=== PATIENT | female | born 1965 | race Caucasian/White ===

== ENCOUNTER 2016-09-16 16:35 | Emergency (ER) | payer OTHER ==
[~2016-09-16 16:35] MED LIST: ALPR2TAB5 PO; BUPR100T8 PO; CODE5LIQ PO; CYCL-331 PO; LAMO200T3 PO; OXYC10TA PO; OXYC60TA7 PO; PHEN37.53 PO; SPIR100T2 PO; SULF1TAB24 PO; SUMA100T4 PO
[2016-09-16] MEDS ORDERED: HYDROcodone/APAP 5/325MG 1 TAB TABLET PO ONE (17:15)
--- NOTE | 2016-09-16 17:30 | RAD ---
Right knee radiographs History: Fall, pain. Comparison: 11/12/2015. Findings: AP, lateral, and oblique views of the right knee. No acute fracture or dislocation is identified. No joint effusion is seen. Moderate medial compartment degeneration is present. Mild lateral compartment degeneration is seen. Mild-moderate patellofemoral compartment degeneration is noted. Postsurgical changes of ACL repair can be seen. Impression: No acute osseous traumatic injury identified.
--- NOTE | 2016-09-16 17:31 | RAD ---
Right wrist radiographs History: Pain, fall. Comparison: None. Findings: PA, lateral, and oblique views of the right wrist. Old posttraumatic and postsurgical changes are again seen involving the right wrist. As before, scaphoid, lunate, and triquetrum are absent. No acute osseous abnormality is identified. Impression: Chronic changes. No acute osseous traumatic injury seen.
[2016-09-16] MEDS ORDERED: MORP15TA PO (17:38)
--- NOTE | 2016-09-16 17:38 | PHYS DOC ---
Past History Past Medical History: Other Past Surgical History: Appendectomy, Cholecystectomy, Hysterectomy Smoking: Cigarettes Alcohol Use: Occasionally Drug Use: None Adult General Chief Complaint Chief Complaint: LOWER EXT PAIN HPI HPI 50-year-old female presenting to the emergency department today with right wrist and right knee pain. She had a fall 4 days ago. Her pain is mild intermittent worse with movement of the extremities. It is nonradiating and is acute on chronic. She takes oxycodone for her pain which improves her pain. She denies any other injuries from her fall. Review of systems is negative for chest pain shortness of breath abdominal pain head trauma neck pain. All other review of systems is negative unless otherwise noted in history of present illness. Pertinent physical exam findings showed a stable knee joint that was with a mild effusion. Normal skin overlying the knee. Neurovascularly intact with 2 second cap refill distally. The right wrist has mild swelling there is neurovascularly intact. Normal skin overlying. Normal motor and vascular function of the hand. ED course: Patient was given oral and intramuscular pain medications for pain control. X-rays obtained which were unremarkable. The patient was then discharged home in stable condition to follow up with their primary care physician over the next 2-3 days. They were to return if their symptoms worsened or if they were concerned for any reason. [id number] discharge instructions and return precautions were given. Patient's questions were answered to their satisfaction. Patient is comfortable plan. Review of Systems Review of Systems SEE ABOVE. Current Medications Current Medications Current Medications Medications (Trade) Dose Ordered Sig/Meena Start Time Stop Time Status Last Admin Dose Admin Acetaminophen/ Hydrocodone Bitart (Lortab 5/325) 2 tab 1X ONCE 09/16/16 17:15 09/16/16 17:16 DC 09/16/16 17:10 2 TAB Allergies Allergies Allergies Coded Allergies Type Severity Reaction Last Updated Verified Penicillins Allergy Intermediate 08/23/15 Yes aspirin Allergy Intermediate 08/23/15 Yes codeine Allergy Intermediate 08/23/15 Yes Interferons Allergy Unknown 11/01/15 Yes Physical Exam Physical Exam Constitutional: Well developed, well nourished, no acute distress, non-toxic appearance. HENT: Normocephalic, atraumatic, bilateral external ears normal, oropharynx moist, no oral exudates, nose normal. [] Eyes: PERRLA, EOMI, conjunctiva normal, no discharge. [] Neck: Normal range of motion, no tenderness, supple, no stridor. [] Cardiovascular:Heart rate regular rhythm, no murmur Lungs & Thorax: Bilateral breath sounds clear to auscultation [] Abdomen: Bowel sounds normal, soft, no tenderness, no masses, no pulsatile masses. [] Skin: Warm, dry, no erythema, no rash. Back: No tenderness, no CVA tenderness. [] Extremities: see above Neurologic: Alert and oriented X 3, normal motor function, normal sensory function, no focal deficits noted. Psychologic: Affect normal, judgement normal, mood normal. [] Current Patient Data Vital Signs Vital Signs Date Time Temp Pulse Resp B/P (MAP) Pulse Ox O2 Delivery O2 Flow Rate FiO2 09/16/16 17:10 18 Room Air 09/16/16 16:50 98.1 101 94 EKG EKG [] Radiology/Procedures Radiology/Procedures [] Course & Med Decision Making Course & Med Decision Making Pertinent Labs and Imaging studies reviewed. (See chart for details) [] Dragon Disclaimer Dragon Disclaimer This chart was dictated in whole or in part using Voice Recognition software in a busy, high-work load, and often noisy Emergency Department environment. It may contain unintended and wholly unrecognized errors or omissions. Departure Departure: Impression: Primary Impression: Wrist pain, right Additional Impression: Right knee pain Disposition: 01 HOME, SELF-CARE Condition: STABLE Referrals: GARRISON MORA MD (PCP) Patient Instructions: Knee Pain, [id number], Wrist Pain, [id number] Additional Instructions: Thank you for allowing us to participate in your care today. Followup with your primary care physician in 3 days if your symptoms do not improve. If you do not have a primary care provider you can ask for a list of our primary care providers. Return to the emergency department you have any new or concerning findings. This should be evaluated by the primary care physician and any necessary consulting services for continued management within a few days after discharge. Return to emergency room if you have any new or concerning symptoms including but not limited to fever, chills, nausea, vomiting, intractable pain, any new rashes, chest pain, shortness of air, uncontrolled bleeding, difficulty breathing, and/or vision loss. You may have been prescribed medication that can change in your level of thinking and ability to operate machinery. These medications include hydrocodone and Ativan. Also, Benadryl has been known to do this as well. Be sure to check with your pharmacist and ask if the medications you've prescribed can affect your level of consciousness. I recommend not operating heavy machinery or driving while on medication such as these. Scripts Morphine Sulfate (MORPHINE SULFATE) 15 Mg Tablet 1 TAB PO PRN Q8HRS Y for SEVERE PAIN, #8 TAB Be careful as this medication may make you sleepy or drowsy. Do not drive or operate heavy machinery on this medication. Be sure to ask the pharmacist about other side effects that can exist such as constipation. Prov: ROSIO TAYLOR MD 09/16/16 Problem Qualifiers ROSIO TAYLOR MD September 16, 2016 17:38
[2016-09-16] MEDS ORDERED: HYDROmorphone PF 1 MG/ML DISP.SYRIN IM ONE (18:15)
[2016-09-16 18:21] VITALS: BP 102/68
== END 2016-09-16 18:22 | disposition home or self-care (01) ==
LOC: ER 16:35
DX: M25.561 Pain in right knee (principal); M25.531 Pain in right wrist; F17.210 Nicotine dependence, cigarettes, uncomplicated; Z88.0 Allergy status to penicillin; Z88.6 Allergy status to analgesic agent; Z88.8 Allergy status to other drugs, medicaments and biological substances; W19.XXXA Unspecified fall, initial encounter; Y93.89 Activity, other specified; Y99.8 Other external cause status; Y92.89 Other specified places as the place of occurrence of the external cause
CPT/HCPCS: 73110; 73562; 96372; 99284; J1170

== ENCOUNTER 2017-02-04 13:53 | Emergency (ER) | payer OTHER ==
[~2017-02-04] VITALS: Ht 154.9 cm; Wt 93.9 kg
[~2017-02-04 13:53] MED LIST changes: +MORP15TA PO
--- NOTE | 2017-02-04 14:00 | PHYS DOC ---
Past History Past Medical History: Other Past Surgical History: Appendectomy, Cholecystectomy, Hysterectomy Smoking: Cigarettes Alcohol Use: Occasionally Drug Use: None Adult General Chief Complaint Chief Complaint: LACERATION/AVULSION HPI HPI Patient is a 51 year old F who presents with a laceration to her scalp. Lisa fell just prior to arrival. She does describe mild headache, mild dizziness and mild nausea. She denies loss of consciousness. She denies changes in vision. She denies any other associated symptoms. She has no exacerbating or alleviating factors. Review of Systems Review of Systems Constitutional: Denies fever or chills [] Eyes: Denies change in visual acuity, redness, or eye pain [] HENT: Denies nasal congestion or sore throat [] Respiratory: Denies cough or shortness of breath [] Cardiovascular: No additional information not addressed in HPI [] GI: Denies abdominal pain, nausea, vomiting, bloody stools or diarrhea [] : Denies dysuria or hematuria [] Musculoskeletal: Denies back pain or joint pain [] Integument: Denies rash Neurologic: Denies headache, focal weakness or sensory changes [] Endocrine: Denies polyuria or polydipsia [] Family History Family History Noncontributory Current Medications Current Medications Medications reviewed Allergies Allergies Allergies Coded Allergies Type Severity Reaction Last Updated Verified Penicillins Allergy Intermediate 08/23/15 Yes aspirin Allergy Intermediate 08/23/15 Yes codeine Allergy Intermediate 08/23/15 Yes Interferons Allergy Unknown 11/01/15 Yes Physical Exam Physical Exam Constitutional: Well developed, well nourished, no acute distress, non-toxic appearance. [] HENT: Normocephalic, 1 cm scalp laceration, clean and hemostatic with mild surrounding edema. Tenderness to palpation Eyes: PERRLA, EOMI, conjunctiva normal, no discharge. [] Neck: Normal range of motion, no tenderness, supple, no stridor. [] Cardiovascular:Heart rate regular rhythm, no murmur [] Lungs & Thorax: Bilateral breath sounds clear to auscultation [] Abdomen: Bowel sounds normal, soft, no tenderness, no masses, no pulsatile masses. [] Skin: Warm, dry, no erythema, no rash. [] Abrasion over the right shoulder Back: No tenderness, no CVA tenderness. [] Extremities: No tenderness, no cyanosis, no clubbing, ROM intact, no edema. [] Neurologic: Alert and oriented X 3, normal motor function, normal sensory function, no focal deficits noted. [] Psychologic: Affect normal, judgement normal, mood normal. [] Chronic anxiety Current Patient Data Vital Signs Vital Signs Date Time Temp Pulse Resp B/P (MAP) Pulse Ox O2 Delivery O2 Flow Rate FiO2 02/04/17 14:07 98.8 92 18 96 Room Air EKG EKG [] Radiology/Procedures Radiology/Procedures Head CT Impressions: No acute disease Course & Med Decision Making Course & Med Decision Making Pertinent Labs and Imaging studies reviewed. (See chart for details) Her laceration was cleaned and repaired with one staple. Dragon Disclaimer Dragon Disclaimer This chart was dictated in whole or in part using Voice Recognition software in a busy, high-work load, and often noisy Emergency Department environment. It may contain unintended and wholly unrecognized errors or omissions. Departure Departure: Impression: Primary Impression: Laceration of head Disposition: HOME, SELF-CARE Condition: STABLE Referrals: GARRISON MORA MD (PCP) Patient Instructions: Laceration Care, Adult Additional Instructions: Lisa was seen in the emergency department for headache injury. No emergency medical condition was found on history or physical exam. She had a normal CT scan of her head. She was on a small laceration which was repaired with catalina. She is advised follow-up with her primary care doctor in the next 7-10 days for removal of the catalina. She was also advised return to the emergency room if she develops new or worsening symptoms. Problem Qualifiers Primary Impression: Laceration of head Encounter type: initial encounter Location of open wound of head: scalp Foreign body presence: without foreign body Qualified Codes: S01.01XA - Laceration without foreign body of scalp, initial encounter GAUDENCIO RAPP MD Feb 04, 2017 14:00
[2017-02-04] MEDS ORDERED: ALPRAZolam 0.25 MG TABLET PO ONE (14:45)
[2017-02-04] MEDS ORDERED: LORazepam 1 MG TABLET PO ONE (14:45)
--- NOTE | 2017-02-04 15:11 | RAD ---
Indication fall. Closed head injury. Noncontrast images of the head were obtained. No prior imaging of the head is available. The calvarium appears unremarkable. The visualized paranasal sinuses appear normal. There is no subdural or epidural hematoma. There is no mass or midline shift. No hemorrhage is seen. An acute intracranial finding is not apparent. IMPRESSION: No acute intracranial finding PQRS Compliance Statement: One or more of the following individualized dose reduction techniques were utilized for this examination: 1. Automated exposure control 2. Adjustment of the mA and/or kV according to patient size 3. Use of iterative reconstruction technique
[2017-02-04 15:29] VITALS: BP 138/73
== END 2017-02-04 15:33 | disposition home or self-care (01) ==
LOC: ER 13:53
DX: S01.01XA Laceration without foreign body of scalp, initial encounter (principal); F17.210 Nicotine dependence, cigarettes, uncomplicated; Z88.0 Allergy status to penicillin; Z88.2 Allergy status to sulfonamides; Z88.5 Allergy status to narcotic agent; Z88.8 Allergy status to other drugs, medicaments and biological substances; W19.XXXA Unspecified fall, initial encounter; Y93.89 Activity, other specified; Y99.8 Other external cause status; Y92.89 Other specified places as the place of occurrence of the external cause
CPT/HCPCS: 12001; 70450; 99284-25

== ENCOUNTER → 2017-08-17 | Outpatient (CLI) | payer OTHER | END | disposition home or self-care (01) | LOC: LAB 15:21 | PROVIDERS: ATTEND Nurse Practitioner Adult Health | DX: K74.60 Unspecified cirrhosis of liver (principal); B18.2 Chronic viral hepatitis C; E66.01 Morbid (severe) obesity due to excess calories; M81.0 Age-related osteoporosis without current pathological fracture | CPT/HCPCS: 36415; G0480 ==

== ENCOUNTER → 2017-10-27 | Outpatient (CLI) | payer OTHER ==
[~2017-10-27] MED LIST changes: -SPIR100T2 PO; +SPIR100T4 PO
[2017-10-27 11:18] LABS: BASO % 1 % (0-3); EOS # 0.1 x10^3/uL (0.0-0.7); EOS % 3 % (0-3); HEMATOCRIT 39.6 % (36.0-47.0); HEMOGLOBIN 13.3 g/dL (12.0-15.5); LYMPH # 1.1 x10^3/uL (1.0-4.8); LYMPH % 25 % (24-48); MEAN CORPUSCULAR HEMOGLOBIN 29 pg (25-35); MEAN CORPUSCULAR HGB CONC 34 g/dL (31-37); MEAN CORPUSCULAR VOLUME 88 fL (79-100); MONO # 0.4 x10^3/uL (0.0-1.1); MONO % 10 % (0-9); NEUT # 2.8 x10^3uL (1.8-7.7); NEUT % 62 % (31-73); PLATELET COUNT 286 x10^3/uL (140-400); RED BLOOD COUNT 4.52 x10^6/uL (3.50-5.40); RED CELL DISTRIBUTION WIDTH 14.3 % (11.5-14.5); WHITE BLOOD COUNT 4.5 x10^3/uL (4.0-11.0)
[2017-10-27 11:25] LABS: ALBUMIN 3.9 g/dL (3.4-5.0); CALCIUM 9.6 mg/dL (8.5-10.1); CREATININE 0.9 mg/dL (0.6-1.0); GFR 65.5; POTASSIUM 3.8 mmol/L (3.5-5.1); TOTAL BILIRUBIN 0.5 mg/dL (0.2-1.0); TOTAL PROTEIN 7.8 g/dL (6.4-8.2)
[2017-10-27 19:32] LABS: FREE T4 0.9 ng/dL (0.76-1.46); THYROID STIM HORMONE (TSH) 0.959 uIU/mL (0.358-3.740)
== END | disposition home or self-care (01) ==
LOC: LAB 10:30
PROVIDERS: ATTEND Physician Assistant
DX: Z51.81 Encounter for therapeutic drug level monitoring (principal); G43.909 Migraine, unspecified, not intractable, without status migrainosus; Z79.899 Other long term (current) drug therapy
CPT/HCPCS: 36415; 80053; 80061; 84439; 84443; 84480; 85025

== ENCOUNTER → 2018-05-06 | Outpatient (CLI) | payer OTHER ==
--- NOTE | 2018-05-06 17:15 | RAD ---
Right RIBS, 3 views, 05/06/2018: HISTORY: Fall, pain There is mild deformity of the right seventh rib laterally. This is not clearly defined on these images. The age of this apparent fracture is unclear. No other rib abnormality is seen. Vertebroplasty changes are noted in the lower lumbar spine. IMPRESSION: Fracture of the right seventh rib laterally, of indeterminate age. Correlation with the site of the patient's current pain is suggested. Electronically signed by: Hugo Parkinson MD (05/06/2018 5:11 PM) [facility]
== END | disposition home or self-care (01) ==
LOC: RAD 12:50
PROVIDERS: ATTEND Family Medicine
DX: M84.48XA Pathological fracture, other site, initial encounter for fracture (principal)
CPT/HCPCS: 71100

== ENCOUNTER 2018-05-31 17:20 | Emergency (ER) | payer OTHER ==
[~2018-05-31] VITALS: Ht 152.4 cm; Wt 104.5 kg
[2018-05-31 17:20] VITALS: BP 135/82
[2018-05-31] MEDS ORDERED: KETO120S2 TP (18:00)
--- NOTE | 2018-05-31 18:01 | PHYS DOC ---
Past History Past Medical History: Hypertension, Hepatitis, Other Past Surgical History: Appendectomy, Cholecystectomy, Hysterectomy, Tonsillectomy, Other Smoking: Cigarettes Alcohol Use: None Drug Use: None Adult General Chief Complaint Chief Complaint: SKIN PROBLEM HPI HPI 52-year-old female presents with acute hypopigmentation of her forearms with a couple spots on her upper chest. Patient states she got in the shower when she got out she had hypopigmentation of her left wrist tattoo and noticed weight spots on her right forearm as well. She states these were not there yesterday. The only thing she did different was she was moving some bedbug traps from one room to room or her couch was. She doesn't believe she got any other chemical on her but she is not certain. Patient states that the skin has a burning character to it, but does not really itch. She denies any other complaints. She has not had dermatological issues in the past. She denies any new exposures except for the insect traps. Review of Systems Review of Systems Constitutional: Denies fever or chills [] Eyes: Denies change in visual acuity, redness, or eye pain [] HENT: Denies nasal congestion or sore throat [] Respiratory: Denies cough or shortness of breath [] Cardiovascular: No additional information not addressed in HPI [] GI: Denies abdominal pain, nausea, vomiting, bloody stools or diarrhea [] : Denies dysuria or hematuria [] Musculoskeletal: Denies back pain or joint pain [] Integument: Hyperpigmentation patches on the arms[] Neurologic: Denies headache, focal weakness or sensory changes [] Endocrine: Denies polyuria or polydipsia [] All other systems were reviewed and found to be within normal limits, except as documented in this note. Allergies Allergies Allergies Coded Allergies Type Severity Reaction Last Updated Verified Penicillins Allergy Intermediate 05/31/18 Yes aspirin Allergy Intermediate 05/31/18 Yes codeine Allergy Intermediate 05/31/18 Yes Interferons Allergy Unknown 05/31/18 Yes Physical Exam Physical Exam Constitutional: Well developed, well nourished, no acute distress, non-toxic appearance. [] HENT: Normocephalic, atraumatic, bilateral external ears normal, oropharynx moist, no oral exudates, nose normal. [] Eyes: PERRLA, EOMI, conjunctiva normal, no discharge. [] Neck: Normal range of motion, no tenderness, supple, no stridor. [] Cardiovascular:Heart rate regular rhythm, no murmur [] Lungs & Thorax: Bilateral breath sounds clear to auscultation [] Abdomen: Bowel sounds normal, soft, no tenderness, no masses, no pulsatile masses. [] Skin: Patches of hypopigmentation on the bilateral forearms with a couple scattered lesions on the upper chest.[] Back: No tenderness, no CVA tenderness. [] Extremities: No tenderness, no cyanosis, no clubbing, ROM intact, no edema. [] Neurologic: Alert and oriented X 3, normal motor function, normal sensory function, no focal deficits noted. [] Psychologic: Affect normal, judgement normal, mood normal. [] Current Patient Data Vital Signs Vital Signs Date Time Temp Pulse Resp B/P (MAP) Pulse Ox O2 Delivery O2 Flow Rate FiO2 05/31/18 17:20 98.4 73 18 95 Room Air EKG EKG [] Radiology/Procedures Radiology/Procedures [] Course & Med Decision Making Course & Med Decision Making Pertinent Labs and Imaging studies reviewed. (See chart for details) Home unsure of the exact cause of the patient's disorder. It could be chemical leuko-derma, lichen sclerosis, tinea versicolor, or pityriasis lichenoides. I will try ketoconazole shampoo. If this does not improve the patient's condition , advised that she see dermatology. She is stable for discharge at this time [] Dragon Disclaimer Dragon Disclaimer This electronic medical record was generated, in whole or in part, using a voice recognition dictation system. Departure Departure: Impression: Primary Impression: Tinea versicolor Disposition: 01 HOME, SELF-CARE Condition: STABLE Referrals: GARRISON MORA MD (PCP) Patient Instructions: Tinea Versicolor (Yeast Infection of the Skin) Scripts Ketoconazole (KETOCONAZOLE) 120 Ml Shampoo 1 JEROME TP DAILY for tinea versicolor for 5 Days, #120 ML 1 Refill Prov: LIZZETTE TOMPKINS DO 05/31/18 LIZZETTE TOMPKINS DO May 31, 2018 18:01
== END 2018-05-31 18:25 | disposition home or self-care (01) ==
LOC: ER 17:20
DX: B36.0 Pityriasis versicolor (principal); I10 Essential (primary) hypertension; F17.210 Nicotine dependence, cigarettes, uncomplicated; Z88.0 Allergy status to penicillin; Z88.5 Allergy status to narcotic agent; Z88.6 Allergy status to analgesic agent; Z88.8 Allergy status to other drugs, medicaments and biological substances
CPT/HCPCS: 99282

== ENCOUNTER 2018-06-01 02:34 | Emergency (ER) | payer OTHER ==
[~2018-06-01] VITALS: Ht 152.4 cm; Wt 104.5 kg
[~2018-06-01 02:34] MED LIST changes: +KETO120S2 TP
[2018-06-01 02:45] VITALS: BP 124/76
--- NOTE | 2018-06-01 02:47 | ED.ADGEN ---
Past History Past Medical History: Anxiety, Arthritis, Depression, Hypertension, Hepatitis, Other Past Surgical History: Appendectomy, Cholecystectomy, Hysterectomy, Tonsillectomy, Other Smoking: Cigarettes Alcohol Use: None Drug Use: None Adult General Chief Complaint Chief Complaint " I worried my tattoos are going away..."." I was here earlier and seen Dr. Alvarado....".. " But these tattoos ... I ve had them for ever.. and now they are disappearing..." HPI HPI Patient is a 52 year old female who presents with above hx and complaints skin lesions that are causing her tattoos to disappear. Patient does have some areas of hypopigmentation. Patient also has areas where she has picked at the skin and cause skin lesions. Patient states she's had recent med changes where approximately 9 psychiatric meds were stopped. Patient has a history of anxiety, depression, bipolar, schizoaffective affective disorder, hypertension, constipation, hepatitis, and chronic pain. Recent does follow at the [facility]. Patient recently admitted at for psych evaluation and detoxification. Patient instructed previously to do treatment with shampoo ketoconazole in the event she has tinea versicolor. Patient returns with similar complaints of prior ED evaluation. Did offer patient baseline labs for evaluation however patient declined. Patient follows with at [facility] and Dr. Mojica. Review of Systems Review of Systems Constitutional: Denies fever or chills [] Eyes: Denies change in visual acuity, redness, or eye pain [] HENT: Denies nasal congestion or sore throat [] Respiratory: Denies cough or shortness of breath [] Cardiovascular: No additional information not addressed in HPI [] GI: Denies abdominal pain, nausea, vomiting, bloody stools or diarrhea [] : Denies dysuria or hematuria [] Musculoskeletal: Denies back pain or joint pain [] Integument: Complains of skin lesions [] Neurologic: Denies headache, focal weakness or sensory changes [] Endocrine: Denies polyuria or polydipsia [] All other systems were reviewed and found to be within normal limits, except as documented in this note. Family History Family History Noncontributory Current Medications Current Medications See nursing for home meds Allergies Allergies Allergies Coded Allergies Type Severity Reaction Last Updated Verified Penicillins Allergy Intermediate 05/31/18 Yes aspirin Allergy Intermediate 05/31/18 Yes codeine Allergy Intermediate 05/31/18 Yes Interferons Allergy Unknown 05/31/18 Yes Physical Exam Physical Exam Constitutional: in acute emotional distress, non-toxic appearance. [] HENT: Normocephalic, atraumatic, bilateral external ears normal, oropharynx moist, no oral exudates, nose normal. [] Eyes: PERRLA, EOMI, conjunctiva normal, no discharge. Glasses Neck: Normal range of motion, no tenderness, supple, no stridor. [] Cardiovascular:Heart rate regular rhythm, no murmur [] Lungs & Thorax: Bilateral breath sounds equal apex with few scattered wheezes on auscultation [] Abdomen: Bowel sounds normal, soft, no tenderness, no masses, no pulsatile masses. Obese. Multiple surgery scars. Mild distention Skin: Warm, dry, no erythema, no rash. Areas where she has abraded the skin by picking. Does have areas of hypopigmentation. Back: No tenderness, no CVA tenderness. [] Extremities: No tenderness, no cyanosis, no clubbing, ROM intact, no edema. [] Arthritic changes. Neurologic: Alert and oriented X 3, normal motor function, normal sensory function, no focal deficits noted. [] Psychologic: Affect very anxious, judgement normal, mood minutes to chronic depression. Denies suicidal ideations, hallucinations,. Denied delusions, or homicidal ideations. Current Patient Data Vital Signs Vital Signs Date Time Temp Pulse Resp B/P (MAP) Pulse Ox O2 Delivery O2 Flow Rate FiO2 06/01/18 02:45 97.6 63 18 98 Room Air EKG EKG [] Radiology/Procedures Radiology/Procedures [] Course & Med Decision Making Course & Med Decision Making Pertinent Labs and Imaging studies reviewed. (See chart for details). Patient offered baseline labs. CBC, BMP, sedimentation rate, and UA.-Patient declined and stated she would go home on follow-up primary care. Advised pt. accurate diagnosis of her skin lesions may required biopsy of lesion s of hypopigmentation . Encouraged patient to follow-up primary care. Encouraged patient to do treatments previously as instructed by Dr. Wood. Patient return if any concerns. Patient encouraged follow-up at counseling center since she seems to have increased anxiety issues. [] Final Impression Final Impression 1. Skin depigmentation 2. Hx. of Anxiety Disorder 3. Hx. Schizoaffective Disorder 4. Chronic Pain 5. Hx. Depression[] Dragon Disclaimer Dragon Disclaimer This electronic medical record was generated, in whole or in part, using a voice recognition dictation system. Dragon Disclaimer This chart was dictated in whole or in part using Voice Recognition software in a busy, high-work load, and often noisy Emergency Department environment. It may contain unintended and wholly unrecognized errors or omissions. Discharge Summary Visit Information Final Diagnosis Problems Medical Problems: (1) Anxiety Status: Acute (2) Skin abnormalities Status: Acute Brief Hospital Course Allergies Allergies Coded Allergies Type Severity Reaction Last Updated Verified Penicillins Allergy Intermediate 05/31/18 Yes aspirin Allergy Intermediate 05/31/18 Yes codeine Allergy Intermediate 05/31/18 Yes Interferons Allergy Unknown 05/31/18 Yes Vital Signs Vital Signs Date Time Temp Pulse Resp B/P (MAP) Pulse Ox O2 Delivery O2 Flow Rate FiO2 06/01/18 02:45 97.6 63 18 98 Room Air Brief Hospital Course Ms. Manning is a 52 old female who presented with complaints of fading tattoos Discharge Information Condition at Discharge: Stable Disposition/Orders: D/C to Home Dischare Medications Active Scripts Active Ketoconazole 120 Ml Shampoo 1 Regan TP DAILY 5 Days Morphine Sulfate 15 Mg Tablet 1 Tab PO PRN Q8HRS PRN Be careful as this medication may make you sleepy or drowsy. Do not drive or operate heavy machinery on this medication. Be sure to ask the pharmacist about other side effects that can exist such as constipation. Guaifenesin-Codeine Syrup (Guaifenesin/Codeine Phosphate) 5 Ml Liquid 5 Ml PO Q6HRS Bactrim Ds Tablet (Sulfamethoxazole/Trimethoprim) 1 Each Tablet 1 Each PO BID Reported Sumatriptan Succinate 100 Mg Tablet 100 Mg PO PRN PRN Phentermine Hcl 37.5 Mg Capsule 37.5 Mg PO DAILY Lamictal (Lamotrigine) 200 Mg Tablet 200 Mg PO BID Bupropion Hcl Sr (Bupropion Hcl) 100 Mg Tablet.er 100 Mg PO DAILY Spironolactone 100 Mg Tablet 100 Mg PO DAILY Cyclobenzaprine Hcl 10 Mg Tablet 10 Mg PO TID Alprazolam 2 Mg Tablet 2 Mg PO PRN Q6HRS PRN Oxycodone Hcl Extend.release (Oxycodone Hcl) 10 Mg Tablet 10 Mg PO QID Oxycontin (Oxycodone HCl) 60 Mg Tab.er.12h 60 Mg PO BID CLAUDIA OLIVERA MD Jun 01, 2018 02:47
== END 2018-06-01 03:15 | disposition home or self-care (01) ==
LOC: ER 02:34
DX: L81.8 Other specified disorders of pigmentation (principal); G89.29 Other chronic pain; I10 Essential (primary) hypertension; M19.90 Unspecified osteoarthritis, unspecified site; F25.9 Schizoaffective disorder, unspecified; F41.9 Anxiety disorder, unspecified; F32.9 Major depressive disorder, single episode, unspecified; F17.210 Nicotine dependence, cigarettes, uncomplicated; Z88.0 Allergy status to penicillin; Z88.6 Allergy status to analgesic agent; Z88.5 Allergy status to narcotic agent; Z88.8 Allergy status to other drugs, medicaments and biological substances
CPT/HCPCS: 99284

== ENCOUNTER → 2019-10-08 | Outpatient (CLI) | payer OTHER ==
[~2019-10-08] MED LIST changes: -KETO120S2 TP; +KETO120S4 TP
--- NOTE | 2019-10-08 12:46 | RAD ---
Knee standing bilateral AP x-ray HISTORY: Pain of the right knee. Injury of the right knee FINDINGS: Right knee demonstrates postoperative changes of anterior cruciate ligament reconstruction with graft and a fixation device at the tunneled graft at the femur. Bilateral osteoarthritis with joint space narrowing particularly at the medial compartments and bulky joint spurs. No fracture or dislocation on this view evident. IMPRESSION: Bilateral knee osteoarthritis. Right knee x-rays 3 views HISTORY: Right knee pain and right knee injury. FINDINGS: Postoperative changes of prior anterior cruciate ligament reconstruction with tunneled lucencies from graft fixation of the proximal tibia and distal femur as well as a fixation device along the lateral femoral cortex at the attachment. There is osteoarthritis with joint space narrowing and bulky spurs with the greatest extent of joint space narrowing at the medial compartment. No fracture. No dislocation. Suprapatellar soft tissue density could indicate a mild joint effusion. Lateral meniscus chondrocalcinosis. IMPRESSION: No acute osseous injury. Osteoarthritis. Electronically signed by: Isidoro Jain MD (10/08/2019 12:43 PM) ALEJANDRO
== END | disposition home or self-care (01) ==
LOC: DXRAD 12:06
PROVIDERS: ATTEND Family Medicine
DX: M17.11 Unilateral primary osteoarthritis, right knee (principal); M11.261 Other chondrocalcinosis, right knee
CPT/HCPCS: 73562; 73565

== ENCOUNTER → 2020-05-16 | Outpatient (CLI) | payer OTHER ==
--- NOTE | 2020-05-16 15:54 | RAD ---
EXAM: 1. CHEST 2 VIEWS. 2. RIGHT RIBS 3 VIEWS. HISTORY: Fall, right rib pain. COMPARISON: None. FINDINGS: There are no displaced right rib fractures. There is mild right glenohumeral osteoarthritis . There are no confluent infiltrates. There is no pneumothorax or pleural effusion. The heart is not en larged. Vertebroplasty changes are noted at the thoracolumbar junction. IMPRESSION: 1. No displaced right rib fractures. 2. No confluent infiltrates. Electronically signed by: Jb Hoffman MD (05/16/2020 3:51 PM) [id number]
--- NOTE | 2020-05-16 16:46 | RAD ---
EXAM: Maxillofacial bones, 3 views. HISTORY: Fall. COMPARISON: None. FINDINGS: 3 views of the maxillofacial bones are obtained. The paranasal sinuses are clear. There is no sinus opacification or air-fluid level. There is no significant nasal septal deviation. IMPRESSION: No convincing radiographic evidence of maxillofacial bone fracture. Electronically signed by: Margoth Hernadez MD (05/16/2020 4:44 PM) [id number]
== END ==
LOC: DXRAD 13:10
PROVIDERS: ATTEND Family Medicine
DX: R07.81 Pleurodynia (principal); M19.011 Primary osteoarthritis, right shoulder; R51.9 Headache, unspecified
CPT/HCPCS: 70150; 71046; 71100

== ENCOUNTER 2020-11-13 20:05 | Emergency (ER) | payer OTHER ==
[~2020-11-13] VITALS: Ht 157.5 cm; Wt 133.4 kg
[2020-11-13] MEDS ORDERED: LIDO:MAALOX 1:1 20 ML SINGLE DOSE. PO ONE (21:00)
[2020-11-13] MEDS ORDERED: IV NORMAL SALINE 1,000ML 1,000 ML IV ONE (21:00)
[2020-11-13 21:18] LABS: BASO # 0.1 x10^3/uL (0.0-0.2); BASO % 1 % (0-3); EOS # 0.3 x10^3/uL (0.0-0.7); EOS % 5 % (0-3); HEMATOCRIT 37.5 % (36.0-47.0); LYMPH # 1.8 x10^3/uL (1.0-4.8); LYMPH % 28 % (24-48); MEAN CORPUSCULAR HEMOGLOBIN 30 pg (25-35); MEAN CORPUSCULAR HGB CONC 35 g/dL (31-37); MEAN CORPUSCULAR VOLUME 87 fL (79-100); MONO # 0.8 x10^3/uL (0.0-1.1); MONO % 13 % (0-9); NEUT # 3.5 x10^3uL (1.8-7.7); NEUT % 54 % (31-73); PLATELET COUNT 315 x10^3/uL (140-400); RED BLOOD COUNT 4.32 x10^6/uL (3.50-5.40); WHITE BLOOD COUNT 6.5 x10^3/uL (4.0-11.0)
[2020-11-13 21:21] LABS: CREATININE 0.8 mg/dL (0.6-1.0); GFR 73.9; POTASSIUM 3.8 mmol/L (3.5-5.1)
[2020-11-13 21:26] LABS: ALBUMIN 3.4 g/dL (3.4-5.0); ALBUMIN/GLOBULIN RATIO 0.9 (1.0-1.7); TOTAL BILIRUBIN 0.3 mg/dL (0.2-1.0); TOTAL PROTEIN 7.4 g/dL (6.4-8.2)
[2020-11-13 21:28] LABS: BACTERIA,URINE MOD /HPF (0-FEW); BILIRUBIN,URINE NEG (NEG); CLARITY,URINE CLOUDY; COLOR,URINE YELLOW; GLUCOSE,URINE NEG (NEG); NITRITE,URINE NEG (NEG); RBC,URINE OCC /HPF (0-2); UROBILINOGEN,URINE 0.2 mg/dL (0.2 mg/dL)
--- NOTE | 2020-11-13 21:28 | RAD ---
Exam: Chest one view INDICATION: Epigastric pain TECHNIQUE: Frontal view of the chest Comparisons: 05/16/2020 FINDINGS: The cardiomediastinal silhouette and pulmonary vessels are within normal limits. The lung and pleural spaces are clear. IMPRESSION: No acute cardiopulmonary process. Electronically signed by: Leigh Aguilar MD (11/13/2020 9:25 PM) MARCELL
[2020-11-13 21:29] LABS: SQUAMOUS EPITHELIAL CELL,UR MOD /LPF
--- NOTE | 2020-11-13 22:11 | PHYS DOC ---
Past History Past Medical History: Anxiety, Arthritis, Depression, Hypertension, Hepatitis, Other Additional Past Medical Histor: multiple personality d/o Past Surgical History: Appendectomy, Cholecystectomy, Hysterectomy, Tonsillectomy, Other Additional Past Surgical Histo: hernia repair, back bilateral wrist, kn ee surgery Smoking: Cigarettes Alcohol Use: None Drug Use: None General Adult EDM: Chief Complaint: ABDOMINAL PAIN HPI: HPI: Patient is a 55-year-old female who presents with epigastric abdominal pain since this morning. Patient denies nausea and vomiting. Patient has a history of GERD and has been taking her daily Prilosec. Denies chest pain, shortness of breath. History of anxiety, depression, multiple personality disorder. Review of Systems: Review of Systems: Constitutional: Denies fever or chills Eyes: Denies change in visual acuity HENT: Denies nasal congestion or sore throat Respiratory: Denies cough or shortness of breath Cardiovascular: Denies chest pain or edema GI: Reports epigastric abdominal pain. Denies nausea/vomiting/diarrhea : Denies dysuria Musculoskeletal: Denies back pain or joint pain Integument: Denies rash Neurologic: Denies headache, focal weakness or sensory changes Endocrine: Denies polyuria or polydipsia Lymphatic: Denies swollen glands Psychiatric: Reports depression or anxiety Current Medications: Current Meds: Current Medications Medications (Trade) Dose Ordered Sig/Meena Start Time Stop Time Status Last Admin Dose Admin Multi-Ingredient Mouthwash/Gargle (Gi Cocktail) 20 ml 1X ONCE 11/13/20 21:00 11/13/20 21:01 DC 11/13/20 21:05 20 ML Sodium Chloride 1,000 ml @ 1,000 mls/hr 1X ONCE 11/13/20 21:00 11/13/20 21:59 11/13/20 21:01 1,000 MLS/HR Allergies: Allergies: Allergies Coded Allergies Type Severity Reaction Last Updated Verified Penicillins Allergy Intermediate 05/31/18 Yes aspirin Allergy Intermediate 05/31/18 Yes codeine Allergy Intermediate 05/31/18 Yes Interferons Allergy Unknown 05/31/18 Yes Physical Exam: PE: Constitutional: Well developed, well nourished, no acute distress, non-toxic appearance. [] HENT: Normocephalic, atraumatic, bilateral external ears normal, oropharynx moist, no oral exudates, nose normal. [] Eyes: PERRLA, EOMI, conjunctiva normal, no discharge. [] Neck: Normal range of motion, no tenderness, supple, no stridor. [] Cardiovascular:Heart rate regular rhythm, no murmur [] Lungs & Thorax: Bilateral breath sounds clear to auscultation [] Abdomen: Bowel sounds normal, soft, no tenderness, no pulsatile masses. [] Skin: Warm, dry, no erythema, no rash. [] Back: No tenderness, no CVA tenderness. [] Extremities: No tenderness, no cyanosis, no clubbing, ROM intact, no edema. [] Neurologic: Alert and oriented X 3, normal motor function, normal sensory function, no focal deficits noted. [] Psychologic: Affect normal, judgement normal, mood normal. [] Current Patient Data: Labs: Laboratory Tests Test 11/13/20 20:43 White Blood Count 6.5 x10^3/uL (4.0-11.0) Red Blood Count 4.32 x10^6/uL (3.50-5.40) Hemoglobin 13.0 g/dL (12.0-15.5) Hematocrit 37.5 % (36.0-47.0) Mean Corpuscular Volume 87 fL (79-100) Mean Corpuscular Hemoglobin 30 pg (25-35) Mean Corpuscular Hemoglobin Concent 35 g/dL (31-37) Red Cell Distribution Width 13.0 % (11.5-14.5) Platelet Count 315 x10^3/uL (140-400) Neutrophils (%) (Auto) 54 % (31-73) Lymphocytes (%) (Auto) 28 % (24-48) Monocytes (%) (Auto) 13 % (0-9) H Eosinophils (%) (Auto) 5 % (0-3) H Basophils (%) (Auto) 1 % (0-3) Neutrophils # (Auto) 3.5 x10^3uL (1.8-7.7) Lymphocytes # (Auto) 1.8 x10^3/uL (1.0-4.8) Monocytes # (Auto) 0.8 x10^3/uL (0.0-1.1) Eosinophils # (Auto) 0.3 x10^3/uL (0.0-0.7) Basophils # (Auto) 0.1 x10^3/uL (0.0-0.2) Urine Collection Type Unknown Urine Color Yellow Urine Clarity Cloudy Urine pH 5.5 Urine Specific [place] >=1.030 Urine Protein Neg (NEG-TRACE) Urine Glucose (UA) Neg mg/dL (NEG) Urine Ketones (Stick) Neg mg/dL (NEG) Urine Blood Neg (NEG) Urine Nitrite Neg (NEG) Urine Bilirubin Neg (NEG) Urine Urobilinogen Dipstick 0.2 mg/dL (0.2 mg/dL) Urine Leukocyte Esterase Small (NEG) Urine RBC Occ /HPF (0-2) Urine WBC 5-10 /HPF (0-4) Urine Squamous Epithelial Cells Mod /LPF Urine Bacteria Mod /HPF (0-FEW) Urine Mucus Mod /LPF Sodium Level 140 mmol/L (136-145) Potassium Level 3.8 mmol/L (3.5-5.1) Chloride Level 102 mmol/L (98-107) Carbon Dioxide Level 30 mmol/L (21-32) Anion Gap 8 (6-14) Blood Urea Nitrogen 7 mg/dL (7-20) Creatinine 0.8 mg/dL (0.6-1.0) Estimated GFR (Cockcroft-Gault) 73.9 BUN/Creatinine Ratio 9 (6-20) Glucose Level 107 mg/dL (70-99) H Calcium Level 9.0 mg/dL (8.5-10.1) Total Bilirubin 0.3 mg/dL (0.2-1.0) Aspartate Amino Transferase (AST) 30 U/L (15-37) Alanine Aminotransferase (ALT) 35 U/L (14-59) Alkaline Phosphatase 97 U/L (46-116) Total Protein 7.4 g/dL (6.4-8.2) Albumin 3.4 g/dL (3.4-5.0) Albumin/Globulin Ratio 0.9 (1.0-1.7) L Vital Signs: Vital Signs Date Time Temp Pulse Resp B/P (MAP) Pulse Ox O2 Delivery O2 Flow Rate FiO2 11/13/20 21:02 82 18 119/69 (86) 94 Room Air 11/13/20 20:30 99.2 EKG: EKG: Heart rate 71 bpm. Sinus rhythm. [] Radiology/Procedures: Radiology/Procedures: []Exam: Chest one view INDICATION: Epigastric pain TECHNIQUE: Frontal view of the chest Comparisons: 05/16/2020 FINDINGS: The cardiomediastinal silhouette and pulmonary vessels are within normal limits. The lung and pleural spaces are clear. IMPRESSION: No acute cardiopulmonary process. Electronically signed by: Leigh Aguilar MD (11/13/2020 9:25 PM) [facility] Heart Score: C/O Chest Pain: No Risk Factors: Risk Factors: DM, Current or recent (<one month) smoker, HTN, HLP, family history of CAD, obesity. Risk Scores: Score 0 - 3: 2.5% MACE over next 6 weeks - Discharge Home Score 4 - 6: 20.3% MACE over next 6 weeks - Admit for Clinical Observation Score 7 - 10: 72.7% MACE over next 6 weeks - Early Invasive Strategies Course & Med Decision Making: Course & Med Decision Making Pertinent Labs and Imaging studies reviewed. (See chart for details) [] 55-year-old female presents with epigastric abdominal pain since this morning. Patient has a history of GERD no reports taking her Prilosec. Patient denies chest pain or shortness of breath. EKG shows heart rate 71 bpm. Patient given GI cocktail. Upon reassessment, patient states that burning sensation is still present. Patient given 4 mg of morphine, 4 mg of Zofran. Labs are unremarkable. Troponin is negative. Chest x-ray is unremarkable. UA is positive for leuks and bacteria. Patient given fosfomycin. Patient most likely has GERD. Discussed diet ways to help prevent symptoms. Went over labs and imaging results with patient. Sending patient home and instructed to follow-up with PCP if pain continues. Patient should continue taking her Prilosec daily. Patient given strict return precautions. Patient is hemodynamically stable upon discharge. Dragon Disclaimer: Dragon Disclaimer: This electronic medical record was generated, in whole or in part, using a voice recognition dictation system. Departure Departure: Impression: Primary Impression: GERD (gastroesophageal reflux disease) Qualified Codes: K21.9 - Gastro-esophageal reflux disease without esophagitis Disposition: HOME / SELF CARE / HOMELESS Condition: STABLE Referrals: GARRISON MORA MD (PCP) Patient Instructions: Diet for Gastroesophageal Reflux Disease, Adult, [id number] Additional Instructions: You are seen in the emergency room for epigastric abdominal pain. You were given a GI cocktail which did not decrease your symptoms. You were also given Zofran for nausea and morphine for pain. Please call your PCP and make a follow-up appointment continue taking your Prilosec at home. I have attached some information for you to read to help with symptoms and prevention of GERD. Please return emergency room for worsening symptoms or concerns. EMERGENCY DEPARTMENT GENERAL DISCHARGE INSTRUCTIONS Thank you for coming to [facility] (ED) today and trusting us with you care. We trust that you had a positivie experience in our Emergency Department. If you wish to speak to the department management, you may call the director at [phone]. YOUR FOLLOW UP INSTRUCTIONS ARE FOLLOWS: 1. Do you have a private Doctor? If you do not have a private doctor, please ask for a resource list of physicians or clinics that may be able to assist you with follow up care. 2. The Emergency Physician has interpreted your x-rays. The X-Ray specialist will also review them. If there is a change in the findings, you will be notified in 48 hours when at all possible. 3. A lab test or culture has been done, your results will be reviewed and you will be notified if you need a change in treatment. ADDITIONAL INSTRUCTIONS AND INFORMATION: 1. Your care today has been supervised by a physician who is specially trained in emergency care. Many problems require more than one evaluation for a complete diagnosis a nd treatment. We recommend that you schedule your follow up appointment as recommended to ensure complete treatment of you illness or injury. If you are unable to obtain follow up care and continue to have a problem, or if your condition worsens, we recommend that you return to the ED. 2. We are not able to safely determine your condition over the phone nor are we able to give sound medical advice over the phone. For these safety reasons, if you call for medical advice we will ask you to come to the ED for further evaluation. 3. If you have any questions regarding these discharge instructions please call the ED at [phone]. SAFETY INFORMATION: In the interest of safety, wellness, and injury prevention; we encourage you to wear your sealbelt, if you smoke; quite smoking, and we encourage family to use a protective helmet for bicycling and other sporting events that present an increased risk for head injury. IF YOUR SYMPTOMS WORSEN OR NEW SYMPTOMS DEVELOP, OR YOU HAVE CONCERNS ABOUT YOUR CONDITION; OR IF YOUR CONDITION WORSENS WHILE YOU ARE WAITING FOR YOUR FOLLOW UP APPOINTMENT; EITHER CONTACT YOUR PRIMARY CARE DOCTOR, THE PHYSICIAN WHOSE NAME AND NUMBER YOU WERE GIVEN, OR RETURN TO THE ED IMMEDIATELY. RUPERTO JACKSON APRN Nov 13, 2020 22:11
[2020-11-13] MEDS ORDERED: ONDANSETRON PF 4 MG/2 ML VIAL. IVP ONE (22:30)
[2020-11-13] MEDS ORDERED: FOSFOMYCIN TROMETHAMINE 3 GM PACKET PO ONE (22:30)
[2020-11-13] MEDS ORDERED: MORPHINE SULFATE 4 MG/ML DISP.SYRIN. IV ONE (22:30)
[2020-11-13 22:58] VITALS: BP 130/70
--- NOTE | 2020-11-14 05:45 | EKG ---
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
== END 2020-11-13 23:03 | disposition home or self-care (01) ==
LOC: ER 20:05
DX: K21.9 Gastro-esophageal reflux disease without esophagitis (principal); M19.90 Unspecified osteoarthritis, unspecified site; I10 Essential (primary) hypertension; F17.210 Nicotine dependence, cigarettes, uncomplicated; Z90.89 Acquired absence of other organs; Z90.49 Acquired absence of other specified parts of digestive tract; Z90.710 Acquired absence of both cervix and uterus; Z88.0 Allergy status to penicillin; Z88.6 Allergy status to analgesic agent; Z88.5 Allergy status to narcotic agent; Z88.8 Allergy status to other drugs, medicaments and biological substances
CPT/HCPCS: 36415; 71045; 80053; 81001; 84484; 85025; 87086; 93005; 96361; 96374; 96375; 99285; J2270; J2405; J7030

== ENCOUNTER 2020-12-10 22:07 | Emergency (ER) | payer OTHER ==
[~2020-12-10] VITALS: Ht 154.9 cm; Wt 133.4 kg
--- NOTE | 2020-12-10 23:27 | PHYS DOC ---
Past History Past Medical History: Anxiety, Arthritis, Depression, Hypertension, Hepatitis, Other Additional Past Medical Histor: multiple personality d/o Past Surgical History: Appendectomy, Cholecystectomy, Hysterectomy, Tonsillectomy, Other Additional Past Surgical Histo: hernia repair, back bilateral wrist, kn ee surgery Smoking: Cigarettes Alcohol Use: None Drug Use: None General Adult EDM: Chief Complaint: LOWER BACK PAIN OR INJURY HPI: HPI: 55-year-old female presents with back pain. The patient fell earlier today against a solid wooden marble table. She struck her upper lower back it is painful but the patient is most concerned about disruption of hardware. She has had previous lumbar surgery exertion. She denies numbness, tingling, altered sensation. No saddle anesthesia. No loss of bowel or bladder. She is already on high-dose pain medication at home. She has not had a dose in several hours and is uncomfortable at this time. She has no other complaints at this time. Review of Systems: Review of Systems: Constitutional: Denies fever or chills Eyes: Denies change in visual acuity HENT: Denies nasal congestion or sore throat Respiratory: Denies cough or shortness of breath Cardiovascular: Denies chest pain or edema GI: Denies abdominal pain, nausea, vomiting, bloody stools or diarrhea : Denies dysuria Musculoskeletal: Back pain Integument: Denies rash Neurologic: Denies headache, focal weakness or sensory changes Endocrine: Denies polyuria or polydipsia Lymphatic: Denies swollen glands Psychiatric: Denies depression or anxiety Allergies: Allergies: Allergies Coded Allergies Type Severity Reaction Last Updated Verified Penicillins Allergy Intermediate 05/31/18 Yes aspirin Allergy Intermediate 05/31/18 Yes codeine Allergy Intermediate 05/31/18 Yes Interferons Allergy Unknown 05/31/18 Yes Physical Exam: PE: Constitutional: Well developed, well nourished, morbidly obese, no acute distress, non-toxic appearance. [] HENT: Normocephalic, atraumatic, bilateral external ears normal, oropharynx moist, no oral exudates, nose normal. [] Eyes: PERRLA, EOMI, conjunctiva normal, no discharge. [] Neck: Normal range of motion, no tenderness, supple, no stridor. [] Cardiovascular:Heart rate regular rhythm, no murmur [] Lungs & Thorax: Bilateral breath sounds clear to auscultation [] Abdomen: Bowel sounds normal, soft, no tenderness, no masses, no pulsatile masses. [] Skin: Warm, dry, no erythema, no rash. [] Back: Old lumbar surgical scar, tenderness of the upper lumbar region. [] Extremities: No tenderness, no cyanosis, no clubbing, ROM intact, no edema. [] Neurologic: Alert and oriented X 3, normal motor function, normal sensory function, no focal deficits noted. [] Psychologic: Affect normal, judgement normal, mood normal. [] EKG: EKG: [] Radiology/Procedures: Radiology/Procedures: [] Impressions: 3 view lumbosacral spine HISTORY: Pain status post fall AP lateral coned-down lateral views There is prior fusion of L5-S1 with bilateral pedicle screws and posterior fusion rods. There has been prior vertebroplasty at T11. The remaining vertebral bodies have normal stature. The vertebral bodies are aligned. IMPRESSION: No acute findings. Electronically signed by: Jaqueline Rodriguez III, MD (12/10/2020 11:41 PM) [facility] DICTATED AND SIGNED BY: JAQUELINE RODRIGUEZ III, MD DATE: 12/10/202340 CC: LIZZETTE TOMPKINS DO; GARRISON MORA MD ~MTH0 0 Heart Score: C/O Chest Pain: N/A Risk Factors: Risk Factors: DM, Current or recent (<one month) smoker, HTN, HLP, family history of CAD, obesity. Risk Scores: Score 0 - 3: 2.5% MACE over next 6 weeks - Discharge Home Score 4 - 6: 20.3% MACE over next 6 weeks - Admit for Clinical Observation Score 7 - 10: 72.7% MACE over next 6 weeks - Early Invasive Strategies Course & Med Decision Making: Course & Med Decision Making Pertinent Labs and Imaging studies reviewed. (See chart for details) The patient's lumbar x-ray is negative for acute findings. I did give the patient 1 Percocet 7.5 for her breakthrough pain. I will not discharge her with additional medications because she already has high-dose narcotics at home. She is stable for discharge at this time. [] Dragon Disclaimer: Dragon Disclaimer: This electronic medical record was generated, in whole or in part, using a voice recognition dictation system. Departure Departure: Impression: Primary Impression: Lumbar contusion Qualified Codes: S30.0XXA - Contusion of lower back and pelvis, initial encounter Disposition: HOME / SELF CARE / HOMELESS Condition: STABLE Referrals: GARRISON MORA MD (PCP) Patient Instructions: Contusion, [id number] LIZZETTE TOMPKINS DO Dec 10, 2020 23:27
[2020-12-10] MEDS ORDERED: oxyCODONE/APAP 7.5/325 1 TAB TABLET PO ONE (23:30)
--- NOTE | 2020-12-10 23:44 | RAD ---
3 view lumbosacral spine HISTORY: Pain status post fall AP lateral coned-down lateral views There is prior fusion of L5-S1 with bilateral pedicle screws and posterior fusion rods. There has bee n prior vertebroplasty at T11. The remaining vertebral bodies have normal stature. The vertebral bodi es are aligned. IMPRESSION: No acute findings. Electronically signed by: Juma Rodriguez III, MD (12/10/2020 11:41 PM) [facility]
[2020-12-11 00:10] VITALS: BP 130/62
[2020-12-11 00:24] LABS: BACTERIA,URINE FEW /HPF (0-FEW); BILIRUBIN,URINE NEG (NEG); CLARITY,URINE HAZY; COLOR,URINE YELLOW; GLUCOSE,URINE NEG (NEG); NITRITE,URINE NEG (NEG); RBC,URINE 0 /HPF (0-2); SQUAMOUS EPITHELIAL CELL,UR MOD /LPF
== END 2020-12-11 00:15 | disposition home or self-care (01) ==
LOC: ER 22:07
DX: S30.0XXA Contusion of lower back and pelvis, initial encounter (principal); I10 Essential (primary) hypertension; F17.210 Nicotine dependence, cigarettes, uncomplicated; Z90.49 Acquired absence of other specified parts of digestive tract; Z90.710 Acquired absence of both cervix and uterus; Z88.0 Allergy status to penicillin; Z88.6 Allergy status to analgesic agent; Z88.5 Allergy status to narcotic agent; W18.39XA Other fall on same level, initial encounter; Y93.89 Activity, other specified; Y92.89 Other specified places as the place of occurrence of the external cause; Y99.8 Other external cause status
CPT/HCPCS: 72100; 81001; 87086; 99284-25

== ENCOUNTER → 2021-08-05 | Outpatient (CLI) | payer OTHER ==
[~2021-08-05] MED LIST changes: +BUPR100T16 PO; -BUPR100T8 PO; -CYCL-331 PO; +CYCL10TA19 PO; +MORP-62 PO; -MORP15TA PO
--- NOTE | 2021-08-05 16:50 | RAD ---
EXAM: XR SHOULDER_LEFT 2+ VIEWS 08/05/2021 4:05 PM CLINICAL INDICATION: Fell on to left arm and shoulder. COMPARISON: None TECHNIQUE: 3 views of the right shoulder. FINDINGS: No acute fracture. Alignment is normal. There is a large inferior humeral head osteophyte. There are subchondral cysts in the glenoid. The acromioclavicular joint is normal. The subacromial sp gladys is preserved. IMPRESSION: 1. No acute osseous abnormality. 2. At least moderate glenohumeral degenerative joint disease. Electronically signed by: Lyn Whittaker MD (08/05/2021 4:48 PM) [id number]
== END ==
LOC: RAD 15:55
PROVIDERS: ATTEND Family Medicine
DX: S49.92XA Unspecified injury of left shoulder and upper arm, initial encounter (principal); S46.002A Unspecified injury of muscle(s) and tendon(s) of the rotator cuff of left shoulder, initial encounter; M19.012 Primary osteoarthritis, left shoulder; M25.712 Osteophyte, left shoulder; X58.XXXA Exposure to other specified factors, initial encounter; Y93.89 Activity, other specified; Y92.89 Other specified places as the place of occurrence of the external cause; Y99.8 Other external cause status
CPT/HCPCS: 73030